=== PATIENT | female | born 1950 | race Caucasian/White ===

== ENCOUNTER 2020-11-13 09:38 | Emergency (ER) | payer MEDICARE, BC ==
[~2020-11-13] VITALS: Ht 170.2 cm; Wt 127.3 kg
[2020-11-13 09:48] VITALS: BP 152/88
--- NOTE | 2020-11-13 10:05 | NUR ---
PT AND HER CHECKED IN FOR MH SERVICED. PT WAS TOLD THAT THERE WOULD BE A BED WAITING FOR THEM. PT WAS ADVISED THAT THE ER WAS FULL AND THAT THERE WAS GOING TO BE A WAIT OF AN UNKNOWN AMOUNT OF TIME. IT WAS EXPLAINED TO THE PT THE PROCESS FOR MH EVALUATIONS AND THAT WHEN THERE WAS AN AVAILABLE ROOM FOR HER WE WOULD GET HER BACK [facility], AND THAT WE WOULD START WITH GETTING LABS WHILE WAITING FOR AN OPEN ROOM. PT STATES THAT SHE CAN NOT WAIT OR SIT IN HER SCOOTER FOR A LONG PERIOD OF TIME AND THAT SHE WANTED TO GO HOME. PT'S WANTED TO GO HOME AND CALL TO SEE WHEN A ROOM WOULD BE AVAILABLE. IT WAS EXPLAINED THAT THIS WAS NOT THE PROCESS, THAT WE DO NOT HOLD ROOMS AND THAT IF THEY DECIDED TO GO HOME AND WANTED TO COME BACK THAT THE PROCESS OF WAITING WAS POSSIBLE AND THAT LABS WOULD HAVE TO BE DRAWN AGAIN. PT AND DECIDED THAT THEY WOULD GO HOME AND GIVE THE PT'S MEDICATIONS A CHANCE TO WORK. PT WAS ADVISE TO F/U WITH HER PSYCHIATRIST AND PMD SUNDAY BUT THEY SAID THEIR DRS WERE NOT HELP. PT WAS ENCOURAGED TO STAY AND THAT WE WOULD TRY TO GET HER IN [facility], BUT PT WANTED TO GO HOME. CHG RN WAS INFORMED OF PT'S HX AND DECISION.
== END 2020-11-13 10:15 | disposition left against medical advice (07) ==
LOC: ER 09:40
DX: Z00.8 Encounter for other general examination (principal); Z53.21 Procedure and treatment not carried out due to patient leaving prior to being seen by health care provider

== ENCOUNTER 2020-12-17 11:42 | Emergency (ER) | payer MEDICARE, BC ==
[~2020-12-17] VITALS: Ht 170.2 cm; Wt 127.0 kg
[2020-12-17 12:57] LABS: BASOPHILS % (AUTO) 0.4 % (0-1); EOSINOPHILS # (AUTO) 0.2 X10'3 (0-0.9); EOSINOPHILS % (AUTO) 2.6 % (0-6); HEMATOCRIT 45.1 % (35.0-45.0); LYMPHOCYTES # (AUTO) 1.3 X10'3 (1.1-4.8); LYMPHOCYTES % (AUTO) 16.3 % (21-51); MEAN CORPUSCULAR HEMOGLOBIN 30.2 PG (27.0-31.0); MEAN CORPUSCULAR HGB CONC 33.2 g/dL (33.0-36.5); MONOCYTES # (AUTO) 0.5 X10'3 (0-0.9); MONOCYTES % (AUTO) 6.3 % (2-12); NEUTROPHILS # (AUTO) 6.1 X10'3 (1.8-7.7); NEUTROPHILS % (AUTO) 74.4 % (42-75); PLATELET COUNT 235 X10'3 (140-440); RED BLOOD COUNT 4.95 X10'6 (4.20-5.60); RED CELL DISTRIBUTION WIDTH 16.3 % (11.5-14.5); WHITE BLOOD COUNT 8.2 X10'3 (4.5-11.0)
[2020-12-17 13:11] LABS: ALANINE AMINOTRANSFERASE 45 U/L (12-78); ALBUMIN 3.6 G/DL (3.4-5.0); ALKALINE PHOSPHATASE 124 IU/L (46-116); ANION GAP 9 (8-16); ASPARTATE AMINO TRANSFERASE 26 U/L (10-37); BILIRUBIN,TOTAL 0.5 MG/DL (0.1-1.0); BLOOD UREA NITROGEN 15 MG/DL (7-18); BUN/CREATININE RATIO 18.3 (6.6-38.0); CALCIUM 9.1 MG/DL (8.5-10.1); CHLORIDE 102 MMOL/L (99-107); CREATININE 0.82 MG/DL (0.40-0.90); GLUCOSE 153 MG/DL (70-104); POTASSIUM 4.1 MMOL/L (3.5-5.1); SODIUM 140 MMOL/L (135-145); TOTAL CARBON DIOXIDE 28.7 MMOL/L (24-32); TOTAL PROTEIN 7.1 G/DL (6.4-8.2); eGFR 69 ML/MIN
[2020-12-17 13:22] LABS: ETHANOL < 0.010 GM/DL (0.0-0.010)
[2020-12-17] MEDS: nystatin 15 GM powder TP SCH ×2 (15:38→20:55)
--- NOTE | 2020-12-17 15:42 | NUR ---
The patient moved to bed 23 in the ER overflow. She was tearful, very anxious and overwhelmed. She stated that she has been thinking about suicide all the time and added, "I really wish I could " She is incontinent of urine and a straight cath was done to obtain a urine samble. Her urine was very dark. She is currently a patient at Dr. Flood office in [place] and was last seen a couple of weeks ago. She did have a suicide attempt approximately one and half months ago by taking an overdose of rx medications. She is nonambulatory and weak. She has difficulty during side to side. She has open wounds on her buttocks. She has yeast rash to bilateral breasts. A PT consult was ordered. SW was paged to assess needs at home. Psychiatry was notified that the patient would need a medication consult.
[2020-12-17] MEDS ORDERED: SERT25TA PO (15:51)
[2020-12-17 15:52] LABS: CLARITY,URINE CLOUDY (Clear); COLOR,URINE YELLOW (Yellow); GLUCOSE, URINE NEGATIVE (Neg); KETONES,URINE NEGATIVE (Neg); OCCULT BLOOD,URINE NEGATIVE (Neg); PROTEIN,URINE NEGATIVE (Neg); UA COLLECTION TYPE STRAIGHT CATH
[2020-12-17 15:53] LABS: LEUKOCYTE ESTERASE ,URINE NEGATIVE (Neg); NITRITES, URINE POSITIVE (Neg); UROBILINOGEN,URINE 0.2 E.U/dL (0.2-1.0)
[2020-12-17 15:58] LABS: WBC,URINE 0-4 /HPF (0-4)
[2020-12-17 15:59] LABS: BACTERIA,URINE 4+ /HPF (Neg); MUCUS STRANDS NONE SEEN /LPF (Neg); RBC,URINE NONE SEEN /HPF (0-2)
[2020-12-17] MEDS ORDERED: CLON-527 PO ×2 (15:59)
[2020-12-17] MEDS ORDERED: METF-436 PO (15:59)
[2020-12-17] MEDS ORDERED: LEVO75CA5 PO (15:59)
[2020-12-17] MEDS ORDERED: PROP10TA10 PO (15:59)
[2020-12-17] MEDS ORDERED: QUET25TA PO (15:59)
[2020-12-17] MEDS ORDERED: LAMO25TA72 PO (15:59)
[2020-12-17 16:00] LABS: SQUAMOUS EPITHELIAL CELL,UR MODERATE /LPF (FEW)
--- NOTE | 2020-12-17 16:00 | NUR ---
PATIENT'S KAYLYN CURTIS [phone]
[2020-12-17 16:05] LABS: URINE AMPHETAMINE SCREEN NEGATIVE (Neg); URINE BARBITUATE SCREEN NEGATIVE (Neg); URINE BENZODIAZEPINES SCREEN POSITIVE (Neg); URINE CANNABINOID SCREEN NEGATIVE (Neg); URINE COCAINE SCREEN NEGATIVE (Neg); URINE METHADONE SCREEN NEGATIVE (Neg); URINE OPIATE SCREEN NEGATIVE (Neg); URINE PHENCYCLIDINE SCREEN NEGATIVE (Neg)
[2020-12-17] MEDS ORDERED: cephalexin 500mg capsule PO SCH (16:30)
--- NOTE | 2020-12-17 16:34 | NUR ---
Packet sent to [facility]
[2020-12-17] MEDS: metFORMIN 500mg tablet PO SCH (20:54)
[2020-12-17] MEDS: QUEtiapine 25mg tablet PO SCH (20:55)
[2020-12-17] MEDS: propranolol 10mg tablet PO SCH (20:55)
[2020-12-17] MEDS ORDERED: nystatin 15 GM powder TP SCH (21:00)
--- NOTE | 2020-12-18 01:45 | NUR ---
Pt. awake and asking to be turned to relieve her pressure wounds. Assisted patient to turn onto her left side. States she is "so uncomfortable". Admits to SI, had a plan to OD on pills, states she attempted suicide via this method "around a month and a half ago", went to [facility]. States she is very depressed and cannot get out of bed or ambulate. Pt feels she will be unable to go back to sleep.
[2020-12-18] MEDS ORDERED: LORazepam 1 MG tablet PO ONE (02:05)
--- NOTE | 2020-12-18 02:19 | NUR ---
Consulted with ER MD, he ordered 0.5 mg Ativan PO for pt's sleeplessness. If this is not effective, will consider additional dose of seroquel. Pt was compliant with medication.
--- NOTE | 2020-12-18 03:39 | NUR ---
Pt awake and requesting to be turned. Assisted patient to turn onto her left side. Pt states "that's much better."
--- NOTE | 2020-12-18 08:00 | NUR ---
Pt. awake and in bed in supine position. Pt. refused breakfast. Pt. took all medications. Pt. incontinent of urine, Pt. cleaned and changed. Pt. turned onto right side. Nystatin powder applied under breasts and pannis.
[2020-12-18] MEDS: metFORMIN 500mg tablet PO SCH ×2 (08:36→20:21)
[2020-12-18] MEDS: propranolol 10mg tablet PO SCH ×3 (08:36→20:21)
[2020-12-18] MEDS: lamoTRIgine 25mg tablet PO SCH (08:36)
[2020-12-18] MEDS: levoTHYROXINE 75mcg tablet PO SCH (08:36)
[2020-12-18] MEDS: clonazePAM 1mg tablet PO SCH ×2 (08:37→13:22)
[2020-12-18] MEDS: sertraline 50mg tablet PO SCH (08:37)
[2020-12-18] MEDS: nystatin 15 GM powder TP SCH ×3 (08:40→20:20)
--- NOTE | 2020-12-18 08:43 | NUR ---
patient was wiped down under breasts and applied talc powder
--- NOTE | 2020-12-18 09:00 | NUR ---
[facility] social worker masters at bedside, pt. is tearful.
--- NOTE | 2020-12-18 10:00 | NUR ---
1:1 done at bedside. PtYomaira blackmonies current SI/HI, A/V hallucinations. Pt. A&Ox4 and cooperative with assessment. Addendum: 12/18/20 at 1525 by MANISH Pt. turned
[2020-12-18] MEDS ORDERED: ondansetron 4mg rapidly disintigrating tab PO ONE (10:10)
--- NOTE | 2020-12-18 10:39 | NUR ---
patient's bedding and gown has been changed, fredis care performed
--- NOTE | 2020-12-18 12:00 | NUR ---
Pt. awake and resting in bed and talking with her . Pt. turned
[2020-12-18] MEDS: NUT.TX.GLUC.INTOLER,LAC-FR,SOY (GLUCERNA) 237 ML PO SCH ×2 (13:25→18:00)
--- NOTE | 2020-12-18 14:00 | NUR ---
Pt.'s social media project manager Christie cell phone number: [phone]
--- NOTE | 2020-12-18 15:00 | NUR ---
Pt. turned to her right side and heels floated.
--- NOTE | 2020-12-18 16:30 | NUR ---
Pt. incontinent of urine. Pt.'s linens changed and chucks put down. Pt. turned to her left side. Pt. c/o of anxiety and asked for something to distract her. Pt. given TV to watch.
--- NOTE | 2020-12-18 17:11 | NUR ---
Pt. had soft formed bowel movement in bed leslie. Pt. cleaned and turned to her right side. Addendum: 12/18/20 at 1718 by MANISH BM was large
--- NOTE | 2020-12-18 19:08 | NUR ---
The patient refused her dinner but did accept her ensure drink. She stated that tonight her mood is good and that she currently is not suicidal and stated that she needs to go to a facility that is not psychiatric but based on her medical needs. She is alert and oriented. She is pleasant when approached
[2020-12-18] MEDS: QUEtiapine 25mg tablet PO SCH (20:21)
--- NOTE | 2020-12-18 21:09 | NUR ---
The patient is resting on her bed
--- NOTE | 2020-12-18 23:19 | NUR ---
The patient appears to be sleeping
--- NOTE | 2020-12-19 00:48 | NUR ---
The patient appears to be sleeping
--- NOTE | 2020-12-19 02:20 | NUR ---
The patient appears to be sleeping
--- NOTE | 2020-12-19 04:02 | NUR ---
The patient appears to be sleeping
--- NOTE | 2020-12-19 07:07 | NUR ---
Patient is sleeping quietly. No distress. In view from nurses station.
[2020-12-19] MEDS: clonazePAM 1mg tablet PO SCH ×2 (08:15→14:02)
[2020-12-19] MEDS: propranolol 10mg tablet PO SCH ×3 (08:15→20:07)
[2020-12-19] MEDS: sertraline 50mg tablet PO SCH (08:15)
[2020-12-19] MEDS: lamoTRIgine 25mg tablet PO SCH (08:15)
[2020-12-19] MEDS: NUT.TX.GLUC.INTOLER,LAC-FR,SOY (GLUCERNA) 237 ML PO SCH ×3 (08:24→18:00)
[2020-12-19] MEDS: levoTHYROXINE 75mcg tablet PO SCH (08:25)
[2020-12-19] MEDS: nystatin 15 GM powder TP SCH ×3 (08:25→20:08)
[2020-12-19] MEDS: metFORMIN 500mg tablet PO SCH ×2 (08:25→20:07)
--- NOTE | 2020-12-19 11:00 | NUR ---
Patient had a good visit with her . she remains bed ridden, patient desires to stay in bed. Patient remains S/I, she denies hallucinations. Patient is medication compliant.
--- NOTE | 2020-12-19 12:37 | NUR ---
Ruchi had a large BM in bed. Patient was cleaned and rotated in bed. The small sacreal wound is cleaned now, a moisture barrier cream and bandage is applied. Patient tollerated well.
--- NOTE | 2020-12-19 17:20 | NUR ---
PT IS SLEEPING , NO C/O
--- NOTE | 2020-12-19 17:31 | NUR ---
Patient sleeps quietly. Patient was coached earlier about positive lifestyle changes. Patient was cooperative. Initially this patient was observed crying and depresses. She did respond positively.
--- NOTE | 2020-12-19 17:34 | NUR ---
The patient was cleaned today, Nystatin powder was placed beneath breasts. Patient's small sacrael wound was cleaned and dressed. Patient was roled side to side with pillows placed, patient tollerated well.
--- NOTE | 2020-12-19 19:31 | NUR ---
Patient's visited and presented as loving and supportive. She was incontinent and was assisted with linen change. She was given tips on how to use her side rails and legs to move side to side. She was encourged to do leg lift exercises to gain strength. She reports her appetite is still poor. She reports that she believes that her energy level is "a little better" She denies suicidal thoughts but states she fells sad. Discussed her internal dialogue of negative thinking and how that works against her goals
[2020-12-19] MEDS: QUEtiapine 25mg tablet PO SCH (20:08)
--- NOTE | 2020-12-19 20:36 | NUR ---
The patient is resting on her bed.
--- NOTE | 2020-12-19 21:56 | NUR ---
The patient appears to be sleeping
--- NOTE | 2020-12-19 23:56 | NUR ---
The patient appears to be sleeping
--- NOTE | 2020-12-20 02:41 | NUR ---
The patient appears to be sleeping
--- NOTE | 2020-12-20 04:13 | NUR ---
The patient appears to be sleeping
--- NOTE | 2020-12-20 06:02 | NUR ---
The patient appeared to have slept well during the night and has not been incontinent
[2020-12-20] MEDS: sertraline 50mg tablet PO SCH (07:24)
[2020-12-20] MEDS: metFORMIN 500mg tablet PO SCH ×2 (07:24→20:15)
[2020-12-20] MEDS: levoTHYROXINE 75mcg tablet PO SCH (07:25)
[2020-12-20] MEDS: clonazePAM 1mg tablet PO SCH ×2 (07:25→12:12)
[2020-12-20] MEDS: lamoTRIgine 25mg tablet PO SCH (07:27)
[2020-12-20] MEDS: propranolol 10mg tablet PO SCH ×3 (07:27→20:15)
[2020-12-20] MEDS: nystatin 15 GM powder TP SCH ×3 (07:32→20:15)
[2020-12-20] MEDS: NUT.TX.GLUC.INTOLER,LAC-FR,SOY (GLUCERNA) 237 ML PO SCH ×3 (08:00→18:48)
--- NOTE | 2020-12-20 08:21 | NUR ---
THe patient sitting up eating her breakfast
--- NOTE | 2020-12-20 10:32 | NUR ---
The patient is resting on her bed.
--- NOTE | 2020-12-20 12:33 | NUR ---
The patient is resting on her bed. visited briefly
--- NOTE | 2020-12-20 14:05 | NUR ---
Pt linen changed, skin cleaned and pt repositioned.
--- NOTE | 2020-12-20 14:58 | NUR ---
Pt had BM, pts skin cleaned and drsg applied to L buttock pressure sore and linens changed.
[2020-12-20] MEDS: QUEtiapine 25mg tablet PO SCH (20:15)
--- NOTE | 2020-12-20 20:36 | NUR ---
Pt at bedside at start of shift. He and pt want the pt to go home tomorrow. Pt calm and cooperative took all meds. Red areas under breasts cleaned and nystatin powder applied. Strips of gauze left under breasts to promote dryness. Pt repositioned self. Pillows applied to help he maintain side lying position.
--- NOTE | 2020-12-21 00:05 | NUR ---
Pt repositioned. Pt dry, canister to fredis wick empty. Pt says she has not had to urinate.
--- NOTE | 2020-12-21 02:01 | NUR ---
Pt repositioned then went right back to sleep.
--- NOTE | 2020-12-21 05:53 | NUR ---
Pt repositioned. Fredis care done, linen change. 300cc dark cameron urine in fredis wick canister, marked with time in black sharpie. Superficial open area on rt buttock cleaned and barrier cream applied. Left buttock foam drsg applied by daysferchoft CD+I. Pt said she did get some good sleep. C/O uncomfortable bed.
--- NOTE | 2020-12-21 07:05 | NUR ---
Pt awake, no complaints. 134 morning blood sugar obtained. Pt states "my hold is up today and I want to go home." Airplane Electrical Repairer explained [facility] will be in to reevaluate as her 5150 hold is up today. Pt denies suicidal thoughts and presents with a linear thought process.
--- NOTE | 2020-12-21 07:30 | NUR ---
Pt requested a bed leslie, thought she had to have a BM. LBM was yesterday. Pt was turned to right side at this time.
[2020-12-21] MEDS: sertraline 50mg tablet PO SCH (08:26)
[2020-12-21] MEDS: clonazePAM 1mg tablet PO SCH (08:26)
[2020-12-21] MEDS: metFORMIN 500mg tablet PO SCH (08:26)
[2020-12-21] MEDS: propranolol 10mg tablet PO SCH (08:26)
[2020-12-21] MEDS: nystatin 15 GM powder TP SCH (08:27)
[2020-12-21] MEDS: lamoTRIgine 25mg tablet PO SCH (08:27)
[2020-12-21] MEDS: NUT.TX.GLUC.INTOLER,LAC-FR,SOY (GLUCERNA) 237 ML PO SCH (08:27)
[2020-12-21] MEDS: levoTHYROXINE 75mcg tablet PO SCH (08:27)
--- NOTE | 2020-12-21 09:00 | NUR ---
Pt on phone with . Pt's hold is up and pt will discharge home with . Pt is A&O x4. Pt is goal-oriented and denies all mental health symptoms. Pt declined her breakfast states she "usually isn't hungry in the morning."
[2020-12-21 09:34] VITALS: BP 141/71
--- NOTE | 2020-12-21 10:09 | NUR ---
DISCHARGE NOTE: Pt is being discharged home with her . Pt left at 0950. Pt left independently on her scooter. Pt left with personal belongings. Pt denies suicidal thoughts at this time. Pt denies A/VH. Pt has a follow up appointment with her MH provider Kary KING at Dr. Flood office on 12/27/20. Pt verbalizes and agrees the importance of keeping follow up. Pt A&Ox4
== END 2020-12-21 10:20 | disposition home or self-care (01) ==
LOC: ER 11:43
DX: R45.851 Suicidal ideations (principal); Z20.822 Contact with and (suspected) exposure to COVID-19; R53.1 Weakness; F41.9 Anxiety disorder, unspecified; F32.9 Major depressive disorder, single episode, unspecified
CPT/HCPCS: 36415; 80053; 80305; 80320; 81001; 82948; 84443; 85025; 87635; 99285; C9803

== ENCOUNTER 2022-06-17 15:41 | Outpatient (CLI) | payer MEDICARE, BC ==
[~2022-06-17 15:41] MED LIST: CLON-527 PO; LAMO25TA72 PO; LEVO75CA5 PO; METF-436 PO; PROP10TA10 PO; QUET25TA PO; SERT25TA PO
[2022-06-17 16:28] LABS: CLARITY,URINE CLEAR (Clear); COLOR,URINE YELLOW (Yellow); GLUCOSE, URINE NEGATIVE (Neg); KETONES,URINE NEGATIVE (Neg); LEUKOCYTE ESTERASE ,URINE TRACE (Neg); NITRITES, URINE NEGATIVE (Neg); OCCULT BLOOD,URINE NEGATIVE (Neg); PH,URINE 6.5 (4.8-8.0); PROTEIN,URINE NEGATIVE (Neg); UROBILINOGEN,URINE 0.2 E.U/dL (0.2-1.0)
[2022-06-17 16:36] LABS: UA COLLECTION TYPE NON-SPECIFIED
[2022-06-17 16:37] LABS: SQUAMOUS EPITHELIAL CELL,UR FEW /LPF (FEW)
[2022-06-17 16:38] LABS: BACTERIA,URINE FEW /HPF (Neg); RBC,URINE 0-2 /HPF (0-2); YEAST FEW /HPF (NEGATIVE)
[2022-06-17 16:39] LABS: CAL OXALATE CRYSTALS FEW /HPF (NEGATIVE)
== END 2022-06-17 23:59 | disposition home or self-care (01) ==
LOC: LAB SPEC 15:41
PROVIDERS: ATTEND Family Medicine
DX: Z87.440 Personal history of urinary (tract) infections (principal); N39.0 Urinary tract infection, site not specified
CPT/HCPCS: 81001; 87088